=== PATIENT | female | born 1975 | race Caucasian/White ===

== ENCOUNTER 2017-12-08 10:19 | Emergency (ER) | payer OTHER ==
[~2017-12-08] VITALS: Ht 149.9 cm; Wt 59.4 kg
[2017-12-08 10:26] VITALS: BP 128/76
--- NOTE | 2017-12-08 10:33 | NUR ---
patient ambulated to rm 11 with steady gait. gave report to Sandi HOPE.
[2017-12-08] MEDS ORDERED: DEXAMETHASONE 10 MG/ML VIAL IM ONE (10:45)
[2017-12-08] MEDS ORDERED: KETOROLAC 60 MG/2 ML VIAL IM ONE (10:45)
--- NOTE | 2017-12-08 10:55 | NUR ---
PT WENT FOR XRAY
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
--- NOTE | 2017-12-08 11:04 | NUR ---
PT IS BACK IN BED FROM XRAY
--- NOTE | 2017-12-08 12:09 | NUR ---
PATIENT IS SITTING UP IN BED, PAIN HAS DECREASED MINIMUALLY AFTER RECIEVING MEDICATION FOR PAIN. AIN IS A LEVEL 8/10.
[2017-12-08 13:09] VITALS: BP 133/71
== END 2017-12-08 13:11 | disposition home or self-care (01) ==
LOC: MED 10:19
DX: M43.6 Torticollis (principal)
CPT/HCPCS: 72040; 81025; 96372; 99285; J1100; J1885